=== PATIENT | male | born 1960 | race Hispanic/Latino ===

== ENCOUNTER 2019-07-01 07:23 | Outpatient (CLI) | payer OTHER ==
--- NOTE | 2019-07-01 07:56 | ULT ---
GALLBLADDER ULTRASOUND: HISTORY: Abnormal liver function tests. FINDINGS: The gallbladder has a normal sonographic appearance. No evidence of gallstones. The common bile lópez t is of normal caliber, measured at 5 mm. The liver shows mild increased echogenicity, suggesting fa tty infiltration. No focal lesion. The pancreas is obscured. The right kidney is unremarkable as v isualized. IMPRESSION: 1. Unremarkable gallbladder ultrasound. 2. Increased liver echogenicity, consistent with fatty infiltration. POS: [facility]
== END 2019-07-01 07:24 | disposition home or self-care (01) ==
LOC: ULT 07:23 → BICULT 07:24
PROVIDERS: ATTEND Family Medicine
DX: R74.8 Abnormal levels of other serum enzymes (principal)
CPT/HCPCS: 76705